=== PATIENT | male | born 1975 | race Caucasian/White ===

== ENCOUNTER 2020-12-18 11:06 | Emergency (ER) | payer OTHER ==
[2020-12-18 11:11] VITALS: BP 132/90; PULSE 76; TEMP 98.4; BMI 28.1
[2020-12-18] MEDS ORDERED: SODIUM CHLORIDE 0.9% 1000 ML INFUS.BAG IV ONE (11:24)
[2020-12-18] MEDS ORDERED: ACETAMINOPHEN 1000 MG/100 ML VIAL (NON FORMULARY) IVPB ONE (11:24)
[2020-12-18] MEDS ORDERED: ACETAMINOPHEN INJECTION 100 ML IVPB ONE (11:25)
[2020-12-18 11:48] LABS: BASO % 6.9 % (0-2.0); EOS % 11.3 % (0-4.5); HEMATOCRIT 45.7 % (35.4-49); HEMOGLOBIN 14.8 GM/dl (11.7-16.9); LYMPH % 19.9 % (8-40); MCH 30.7 pg (25.7-33.7); MCHC 32.5 g/dl (32.0-35.9); MEAN CELL VOLUME 94.4 fl (80-96); MEAN PLT VOLUME 8.3 fl (7.5-11.1); MONO % 5.5 % (3.8-10.2); NEUT % 56.4 % (42.8-82.8); PLATELET COUNT 341 K/MM3 (134-434); RBC 4.84 M/mm3 (4.00-5.60); RDW 13.8 % (11.9-15.9)
[2020-12-18 11:53] LABS: EPITHELIAL CELLS FEW /hpf
[2020-12-18 13:32] LABS: POTASSIUM 4.3 mmol/L (3.5-5.1)
[2020-12-18 13:34] LABS: CALCIUM 9.4 mg/dL (8.5-10.1)
[2020-12-18 13:35] LABS: ALBUMIN 4.1 g/dl (3.4-5.0); BLOOD UREA NITROGEN 16.3 mg/dL (7-18)
[2020-12-18 13:39] LABS: BILIRUBIN,TOTAL 0.4 mg/dL (0.2-1)
[2020-12-18 13:40] LABS: TOT PROT 7.3 g/dl (6.4-8.2)
[2020-12-18 14:23] LABS: BASO % 3.3 % (0-2.0); EOS % 8.3 % (0-4.5); HEMATOCRIT 43.4 % (35.4-49); HEMOGLOBIN 14.6 GM/dl (11.7-16.9); LYMPH % 11.3 % (8-40); MCH 30.9 pg (25.7-33.7); MCHC 33.6 g/dl (32.0-35.9); MEAN CELL VOLUME 92.1 fl (80-96); MEAN PLT VOLUME 7.7 fl (7.5-11.1); MONO % 6.6 % (3.8-10.2); NEUT % 70.5 % (42.8-82.8); PLATELET COUNT 328 K/MM3 (134-434); RBC 4.71 M/mm3 (4.00-5.60); WHITE BLOOD COUNT 6.9 K/mm3 (4.0-10.8)
== END 2020-12-18 14:55 ==
LOC: FER 11:06
PROC: 3E033NZ Introduction of Analgesics, Hypnotics, Sedatives into Peripheral Vein, Percutaneous Approach (ICD-10-PCS; principal; 2020-12-18)
DX: K40.90 Unilateral inguinal hernia, without obstruction or gangrene, not specified as recurrent (principal)
CPT/HCPCS: 36415; 74177-TC; 76870-TC; 80053; 81003; 81015; 85025; 99285-25; J0131; Q9967

== ENCOUNTER 2021-07-31 10:45 | Emergency (ER) | payer OTHER ==
[2021-07-31 10:54] VITALS: BP 138/94; PULSE 86; TEMP 98; BMI 27.8
== END 2021-07-31 12:00 | disposition home or self-care (01) ==
LOC: FER 10:45
DX: Z48.02 Encounter for removal of sutures (principal)
CPT/HCPCS: 99281-25